=== PATIENT | female | born 1965 | race Caucasian/White ===

== ENCOUNTER 2017-11-08 08:28 | Day surgery (SDC) | payer OTHER ==
[2017-11-08 08:53] VITALS: BMI 27.2
[2017-11-08] MEDS ORDERED: Midazolam 2 MG/2 ML VIAL ONE (11:41)
[2017-11-08] MEDS ORDERED: Propofol 10 mg/ml Inj (20 ML) ONE (11:41)
[2017-11-08 12:35] VITALS: TEMP 97.1; O2SAT 100
[2017-11-08 13:26] VITALS: BP 124/63; PULSE 60; RESP 12
== END 2017-11-08 14:00 | disposition home or self-care (01) ==
LOC: C.ENDO 08:28 → EDBD 08:28 → C.ENDO 14:00
PROVIDERS: ATTEND Internal Medicine Gastroenterology
DX: K52.9 Noninfective gastroenteritis and colitis, unspecified (principal); K64.8 Other hemorrhoids; K29.70 Gastritis, unspecified, without bleeding; K31.7 Polyp of stomach and duodenum; F41.9 Anxiety disorder, unspecified; F31.9 Bipolar disorder, unspecified; F90.9 Attention-deficit hyperactivity disorder, unspecified type
CPT/HCPCS: 43239; 43251; 45380; 84703; 88305; 88313; 88342; J2001; J2250; J2704

== ENCOUNTER 2018-05-06 20:42 | Emergency (ER) | payer OTHER ==
[2018-05-06 20:43] VITALS: BMI 27.2
[2018-05-06 20:59] VITALS: RESP 16; TEMP 98.5
[2018-05-06] MEDS ORDERED: Sodium Chloride 0.9% 1,000 ML IV ONE (21:20)
[2018-05-06] MEDS ORDERED: Pantoprazole 80 MG in Sodium Chloride 0.9% 100 ML IV STA (21:20)
--- NOTE | 2018-05-06 21:20 | C.PDOC ---
History Of Present Illness 52 year old female presents to the ED with abdominal pain and 3-4 episodes of bloody diarrhea. Patient has a history of Irritable Bowel Syndrome and believes it is acting up. Denies any fever, chills, nausea and vomiting. Time Seen by Provider: 05/06/18 21:19 Chief Complaint (Nursing): Abdominal Pain History Per: Patient History/Exam Limitations: no limitations Onset/Duration Of Symptoms: Hrs Current Symptoms Are (Timing): Still Present (3-4 episodes of bloody diarrhea) Severity: Mild Pain Scale Rating Of: 4 Location Of Pain/Discomfort: Epigastric Radiation Of Pain To:: None Quality Of Discomfort: Dull, Aching Associated Symptoms: Diarrhea (bloody). denies: Fever, Chills, Nausea, Vomiting Exacerbating Factors: None Alleviating Factors: None Last Bowel Movement: Today Recent travel outside of the [place]: No Additional History Per: Patient Abnormal Vaginal Bleeding: No Past Medical History Reviewed: Historical Data, Nursing Documentation, Vital Signs Vital Signs: Last Vital Signs Temp 98.5 F 05/06/18 20:56 Pulse 78 05/06/18 20:56 Resp 16 05/06/18 20:56 BP 106/71 05/06/18 20:56 Pulse Ox 98 05/06/18 20:56 - Medical History PMH: Anxiety, Bipolar Disorder, Bronchitis, Depression, Paranoia Denies: Chronic Kidney Disease Family History: States: No Known Family Hx - Social History Hx Alcohol Use: No Hx Substance Use: No - Immunization History Hx Tetanus Toxoid Vaccination: No Hx Influenza Vaccination: No Hx Pneumococcal Vaccination: No Review Of Systems Constitutional: Negative for: Fever, Chills Cardiovascular: Negative for: Chest Pain, Palpitations Respiratory: Negative for: Cough, Shortness of Breath Gastrointestinal: Positive for: Abdominal Pain, Diarrhea (bloody). Negative for: Nausea, Vomiting, Rectal Pain Genitourinary: Negative for: Vaginal Bleeding Musculoskeletal: Negative for: Back Pain Skin: Negative for: Rash Neurological: Negative for: Weakness, Numbness Psych: Negative for: Anxiety Physical Exam - Physical Exam Appears: Non-toxic Skin: Warm, Dry Head: Normacephalic Oral Mucosa: Moist Neck: Supple Chest: Symmetrical, No Tenderness Cardiovascular: Rhythm Regular Respiratory: No Rales, No Rhonchi, No Wheezing Gastrointestinal/Abdominal: Bowel Sounds (normal), Soft, Tenderness (Mild mid epigastric ), No Guarding, No Rebound Rectal: Heme Positive Back: Normal Inspection Extremity: Normal ROM Extremity: Bilateral: Atraumatic Pulses: Left Dorsalis Pedis: Normal, Right Dorsalis Pedis: Normal Neurological/Psych: Oriented x3, Normal Speech Gait: Steady ED Course And Treatment - Laboratory Results Result Diagrams: 05/06/18 21:29 10 21:29 O2 Sat by Pulse Oximetry: 98 (RA) Pulse Ox Interpretation: Normal Progress Note: Blood work and urinalysis ordered. Administered IV fluids and protonix. Reevaluation Time: 00:22 Reassessment Condition: Improved Medical Decision Making Medical Decision Making: Upon provider reevaluation patient is feeling better, is medically stable, and requires no further treatment in the ED at this time. Patient will be discharged home with Rx for flagyl. Counseling was provided and all questions were answered regarding diagnosis and need for follow up with the referred clinic. There is agreement to discharge plan. Return if symptoms persist or worsen. Disposition Counseled Patient/Family Regarding: Studies Performed, Diagnosis, Need For Followup, Rx Given - Disposition Disposition: HOME/ ROUTINE Disposition Time: 21:20 Condition: FAIR Additional Instructions: Pleas follow up with your exercise manager, or return if symptoms recur Prescriptions: Metronidazole [Flagyl] 500 mg PO TID #21 tablet Instructions: Acute Abdomen (Belly Pain), Adult (DC) Forms: [facility] (Slovak) - Clinical Impression Clinical Impression: Abdominal pain, Diarrhea - Scribe Statement The provider has reviewed the documentation as recorded by the Scribe (Blanca Yoder) All medical record entries made by the Scribe were at my direction and personally dictated by me. I have reviewed the chart and agree that the record accurately reflects my personal performance of the history, physical exam, medical decision making, and the department course for this patient. I have also personally directed, reviewed, and agree with the discharge instructions and disposition.
[2018-05-06 21:33] LABS: BASO # 0.1 K/uL (0.0-0.2); BASO % 0.8 % (0.0-2.0); EOS # 0.1 K/uL (0.0-0.7); EOS % 1.1 % (0.0-4.0); HEMOGLOBIN 13.1 g/dL (11.0-16.0); LYMPH # 2.2 K/uL (1.0-4.3); LYMPH % 25.5 % (20.0-40.0); MEAN CELL VOLUME 89.2 fL (81.0-99.0); MEAN CORPUSCULAR HEMOGLOBIN 30.3 pg (27.0-31.0); MEAN CORPUSCULAR HGB CONC 33.9 g/dL (33.0-37.0); MEAN PLATELET VOLUME 7.4 fL (7.2-11.7); MONO # 0.7 K/uL (0.0-0.8); MONO % 8.2 % (0.0-10.0); NEUT # 5.6 K/uL (1.8-7.0); NEUT % 64.4 % (50.0-75.0); RBC 4.34 Mil/uL (3.80-5.20); RED CELL DISTRIBUTION WIDTH 14.1 % (11.5-14.5); WHITE BLOOD COUNT 8.7 K/uL (4.8-10.8)
[2018-05-06 21:38] LABS: HCG,QUALITATIVE URINE NEGATIVE (NEGATIVE)
[2018-05-06 21:39] LABS: SQUAMOUS EPITHIAL 1 /hpf (0-5); URINE BILIRUBIN NEGATIVE (NEGATIVE); URINE BLOOD NEGATIVE (NEGATIVE); URINE CLARITY Clear (Clear); URINE COLOR Yellow (YELLOW); URINE GLUCOSE (UA) NORMAL (Normal); URINE PROTEIN NEGATIVE (NEGATIVE); URINE UROBILINOGEN NORMAL mg/dL (0.2-1.0)
[2018-05-06 21:40] LABS: URINE LEUKOCYTE ESTERASE TRACE Leu/uL (Negative)
[2018-05-06 21:41] LABS: PROTHROMBIN TIME 11.1 SECONDS (9.7-12.2)
[2018-05-06 21:51] LABS: ALB/GLOB RATIO 1.4 (1.0-2.1); ALBUMIN 4.7 g/dL (3.5-5.0); ALT/SGPT 27 U/L (9-52); AST/SGOT 26 U/L (14-36); BLOOD UREA NITROGEN 16 mg/dL (7-17); CALCIUM 9.7 mg/dl (8.6-10.4); GFR NON-AFRICAN AMERICAN > 60
[2018-05-06] MEDS ORDERED: Iodixanol 320 MG/ML 100 ML BOTTLE IV ONE (22:32)
[2018-05-07 00:43] VITALS: BP 118/80; PULSE 89; O2SAT 100
--- NOTE | 2018-05-07 14:04 | CT ---
Date of service: 05/06/2018 PROCEDURE: CT Abdomen and Pelvis with contrast HISTORY: abd pain, hx of ibs COMPARISON: None available TECHNIQUE: Contrast dose: 100 mL Visipaque IV Radiation dose: Total exam DLP = 723.91 mGy-cm. This CT exam was performed using one or more of the following dose reduction techniques: Automated exposure control, adjustment of the mA and/or kV according to patient size, and/or use of iterative reconstruction technique. FINDINGS: LOWER THORAX: Bibasilar atelectasis. No visible pleural effusion or pneumothorax. LIVER: Unremarkable. GALLBLADDER AND BILE DUCTS: Contracted gallbladder limits evaluation. PANCREAS: Unremarkable. SPLEEN: Unremarkable. ADRENALS: Unremarkable. KIDNEYS AND URETERS: The kidneys enhance symmetrically. No hydronephrosis or obstructing calculus identified. VASCULATURE: No aortic aneurysm. BOWEL: Stomach is nondistended. Lack of oral contrast limits evaluation for bowel pathology. Bowel loops appear within normal limits of caliber without evidence of obstruction. APPENDIX: The appendix appears within normal limits of caliber. No secondary signs of acute appendicitis. PERITONEUM: No significant free fluid. No definite free air. LYMPH NODES: No bulky adenopathy identified. BLADDER: Unremarkable. REPRODUCTIVE: Uterus is present. BONES: No acute osseous abnormality is detected. OTHER FINDINGS: None. IMPRESSION: No acute intra-abdominal or intrapelvic pathology identified. Preliminary impression was provided by [facility].
== END 2018-05-07 00:43 | disposition home or self-care (01) ==
LOC: C.ER 20:42
DX: R10.9 Unspecified abdominal pain (principal); R19.7 Diarrhea, unspecified
CPT/HCPCS: 74177; 80053; 81001; 84703; 85025; 85610; 85730; 96361; 96374; 99284; C9113; G0328; J7030; Q9967